=== PATIENT | male | born 1970 | race Two or more races ===

== ENCOUNTER 2018-02-25 12:07 | Emergency (ER) | payer OTHER ==
[2018-02-25 12:21] VITALS: BP 118/78; PULSE 57; TEMP 98.8; BMI 29.9
[2018-02-25] MEDS ORDERED: IBUPROFEN 600 MG TABLET (FP) PO ONE ×2 (13:47→13:51)
--- NOTE | 2018-02-25 13:56 | PDOC ---
Suture Removal/Wound Check HPI - History of Present Illness Chief Complaint: Revisit,Wound Recheck Stated Complaint: LEFT RING FINGER INJURD Time Seen by Provider: 02/25/18 12:58 History Source: Yes: Patient Exam Limitations: Yes: No Limitations - Onset of Previous Treatment Date of Occurence: 02/23/18 Option to Enter number here: 2 Select one - (for the option above): Days Past History - Travel Traveled outside of the country in the last 30 days: No Close contact w/someone who was outside of country & ill: No - Past Medical History Allergies/Adverse Reactions: Allergies Allergy/AdvReac Type Severity Reaction Status Date / Time No Known Drug Allergies Allergy Verified 02/22/18 21:42 Home Medications: Ambulatory Orders Ciprofloxacin HCl [Cipro] 500 mg PO BID #14 tablet 02/22/18 Anemia: No Asthma: Yes Cancer: No Cardiac Disorders: No CVA: No COPD: No CHF: No Dementia: No Diabetes: No GI Disorders: No Disorders: No HTN: No Hypercholesterolemia: No Liver Disease: No Seizures: No Thyroid Disease: No - Suicide/Smoking/Psychosocial Hx Smoking History: Never smoked Have you smoked in the past 12 months: No Hx Alcohol Use: No Drug/Substance Use Hx: No Substance Use Type: None Hx Substance Use Treatment: No Suture Removal/Wound Check PE - Physical Exam Laceration/Wound Check Symptoms: reports: Pain. denies: Fever, Chills Current Severity Level: Moderate Maximum Severity Level: Severe *Review of Systems - Review of Systems Constitutional: No: Chills, Fever HEENTM: No: Nose Congestion, Throat Pain Respiratory: No: Cough, Orthopnea, SOB at Rest Musculoskeletal: Yes: Joint Pain. No: Neck Pain, Joint Stiffness Neurological: No: Numbness, Paresthesia *Physical Exam - Vital Signs Last Vital Signs Temp Pulse Resp BP Pulse Ox 98.8 F 57 L 18 118/78 98 02/25/18 12:10 02/25/18 12:10 02/25/18 12:10 02/25/18 12:10 02/25/18 12:10 - Physical Exam General Appearance: Yes: Nourished, Appropriately Dressed HEENT: positive: EOMI, JULITO Respiratory/Chest: positive: Lungs Clear, Normal Breath Sounds Cardiovascular: positive: Regular Rhythm, Regular Rate Extremity: positive: Other (dx with crush injury to left 4th digit) Medical Decision Making - Medical Decision Making 02/25/18 19:21 47 year old male states he was told to come to ed by office of Dr. Sanchez, states he is going to be seen here. After multiple calls to Dr. Sanchez's office, received call back from Dr. Sanchez who was in another hospital, states patient was scheduled to be in ed in the am. Instruction given for patient to return to ed in the morning and admitted to his service through emergency room for surgery. Instructions given to patient who states understanding *DC/Admit/Observation/Transfer Diagnosis at time of Disposition: Finger injury Qualifiers: Encounter type: initial encounter Laterality: left Qualified Code(s): S69.92XA - Unspecified injury of left wrist, hand and finger(s), initial encounter - Discharge Dispostion Disposition: HOME Condition at time of disposition: Good Decision to Admit order: No - Referrals Referrals: Wiley Augustin MD [Staff Physician] - - Patient Instructions Additional Instructions: Please leave dressing in place Report to emergency room at 8am for admission on Dr. Wiley Sanchez's service for surgery of finger May take acetaminophen today, no ibuprofen, advil or alleve Do not eat in the morning unless instructed to do so by Dr. Sanchez - Post Discharge Activity Forms/Work/School Notes: Back to Work
== END 2018-02-25 16:17 | disposition home or self-care (01) ==
LOC: JERFT 12:07
DX: S69.92XA Unspecified injury of left wrist, hand and finger(s), initial encounter (principal); Y92.9 Unspecified place or not applicable
CPT/HCPCS: 99281-25

== ENCOUNTER 2018-02-26 08:26 | Emergency (ER) | payer OTHER ==
[2018-02-26 08:39] VITALS: BMI 29.9
--- NOTE | 2018-02-26 09:25 | PDOC ---
History of Present Illness - General Chief Complaint: Injury Stated Complaint: PCP SENT Time Seen by Provider: 02/26/18 08:56 History Source: Patient - History of Present Illness Initial Comments: 02/26/18 10:53 Patient is a 47 year old male with no reported PMH who presents to the ED following a L 4th digit open fracture. Patient was at work earlier this week when his hand got caught on a wrecking ball. Was evaluated in our ED on 02/25 and scheduled for repair w/Dr. Augustin today. Patient states he is taking the prescribed antibiotic course and denies any fevers, numbness or tingling. Past History - Past Medical History Allergies/Adverse Reactions: Allergies Allergy/AdvReac Type Severity Reaction Status Date / Time No Known Drug Allergies Allergy Verified 02/26/18 09:58 Home Medications: Ambulatory Orders Ciprofloxacin HCl [Cipro] 500 mg PO BID #14 tablet 02/22/18 Cephalexin Monohydrate [Keflex -] 500 mg PO Q8H #15 capsule 02/26/18 Ibuprofen [Motrin -] 600 mg PO TID PRN #90 tablet MDD 3 02/26/18 Oxycodone HCl/Acetaminophen [Percocet 5-325 mg Tablet] 1 tab PO Q6H PRN #15 tablet MDD 4 02/26/18 Anemia: No Asthma: Yes Cancer: No Cardiac Disorders: No CVA: No COPD: No CHF: No Dementia: No Diabetes: No GI Disorders: No Disorders: No HTN: No Hypercholesterolemia: No Liver Disease: No Seizures: No Thyroid Disease: No - Suicide/Smoking/Psychosocial Hx Smoking History: Never smoked Have you smoked in the past 12 months: No Information on smoking cessation initiated: No Hx Alcohol Use: No Drug/Substance Use Hx: No Substance Use Type: None Hx Substance Use Treatment: No Review of Systems - Review of Systems Constitutional: No: Chills, Fever HEENTM: No: Blurred Vision, Double Vision Respiratory: No: Cough, Shortness of Breath, Stridor, Wheezing Cardiac (ROS): No: Chest Pain, Lightheadedness, Palpitations, Syncope ABD/GI: No: Constipated, Diarrhea, Nausea, Vomiting : No: Burning, Dysuria *Physical Exam - Vital Signs Last Vital Signs Temp Pulse Resp BP Pulse Ox 98.5 F 56 L 16 127/89 100 02/26/18 08:30 02/26/18 08:30 02/26/18 08:30 02/26/18 08:30 02/26/18 08:30 - Physical Exam General Appearance: Yes: Nourished, Appropriately Dressed HEENT: positive: Normal Voice, Hearing Grossly Normal Neck: positive: Trachea midline, Supple Respiratory/Chest: positive: Lungs Clear, Normal Breath Sounds Cardiovascular: positive: S1, S2, Edema, JVD Comments:: 02/26/18 17:44 2+ radial pulse B/L Gastrointestinal/Abdominal: positive: Flat, Soft Extremity: positive: Other (L 4th digit: nail laceration, NVI, hand otherwise warm, dry, intact skin) Neurologic: positive: Fully Oriented, Alert Medical Decision Making - Medical Decision Making 02/26/18 15:15 47 year old male with open tuft fracture Dr. Ryder @ bedside. Nail avulsion, detachment and repair. Patient to continue on antibiotic prophylaxis, return precautions and discharged home. I discussed the physical exam findings, ancillary test results and final diagnoses with the patient. I answered all of the patient's questions. The patient was satisfied with the care received and felt comfortable with the discharge plan and treatment plan. The patient will return to the Emergency Department with any new, persistent or worsening symptoms. *DC/Admit/Observation/Transfer Diagnosis at time of Disposition: Finger injury Qualifiers: Encounter type: initial encounter Laterality: left Qualified Code(s): S69.92XA - Unspecified injury of left wrist, hand and finger(s), initial encounter - Discharge Dispostion Disposition: HOME Condition at time of disposition: Improved - Prescriptions Prescriptions: Cephalexin Monohydrate [Keflex -] 500 mg PO Q8H #15 capsule Ibuprofen [Motrin -] 600 mg PO TID PRN #90 tablet MDD 3 PRN Reason: Pain Oxycodone HCl/Acetaminophen [Percocet 5-325 mg Tablet] 1 tab PO Q6H PRN #15 tablet MDD 4 PRN Reason: Pain - Referrals - Patient Instructions Printed Discharge Instructions: DI for Laceration Repair -- Finger Additional Instructions: Postoperative instructions: You had a Nail bed laceration repair on 02/26/[address] Wiley Augustin of [facility]. You have been prescribed an antibiotic. Please take the entire prescribed course. Activity: Resume your usual activities gradually, but no heavy exertion or lifting more than 10-15 pounds for 4-6 weeks. please keep dressing on clean and dry until first followup appointment. Eat lightly at first, but advance to your usual diet as tolerated. Pain: For pain, you may use and alternate Tylenol (acetaminophen) 1-2 pills and/ or ibuprofen 200 mg (1-3 pills) every 6 hours each as needed; this means that you can take one OR the other at 3-hour intervals. If you are prescribed a Tylenol/narcotic combination for severe pain, use it instead of plain Tylenol as needed and switch back when your pain starts decreasing. Do not take more than 4000 mg of acetaminophen in a day. Take medications as prescribed or indicated on the labeling. Follow-up: Call Dr. Augustin' office at [phone] to make your postop appointment (Wednesday in approximately 2 weeks after procedure as advised). Clinic is held in the [facility] on the first floor of [facility]. Call the office if you have: * increasing pain not responsive to pain medication * fever of 101F or higher * unusual or increasing bleeding or drainage from wounds * increasing redness or swelling at wound sites Also, see your primary medical doctor within 1-2 weeks. Return to the Emergency Department for any new/worsening/concerning symptoms. - Post Discharge Activity
[2018-02-26] MEDS ORDERED: LIDOCAINE HCL 2% (20ML MULTI-DOSE VIAL) NR ONE (09:35)
--- NOTE | 2018-02-26 09:39 | CONSULT ---
Consult Consult Specialty:: Hand and Microsurgery Reason for Consultation:: left ring finger open fracture - History of Present Illness Chief Complaint: left ring finger open fracture History of Present Illness: 47 yo RHD male with no significant PMH who presents to the ED following a Left 4th digit open fracture. Patient was at work earlier this week when his hand got caught on a wrecking ball. Was evaluated in our ED on 02/25 and scheduled for repair w/Dr. Augustin today. Patient states he is taking the prescribed antibiotic course and denies any fevers, numbness or tingling. We were asked to assess and treat. - History Source History Provided By: Patient, Medical Record Limitations to Obtaining History: No Limitations - Alcohol/Substance Use Hx Alcohol Use: No - Smoking History Smoking history: Never smoked Have you smoked in the past 12 months: No - Social History Usual Living Arrangement: With Spouse Place of : [facility] History of Recent Travel: No Home Medications - Allergies Allergies/Adverse Reactions: Allergies Allergy/AdvReac Type Severity Reaction Status Date / Time No Known Drug Allergies Allergy Verified 02/26/18 09:58 - Home Medications Home Medications: Ambulatory Orders Ciprofloxacin HCl [Cipro] 500 mg PO BID #14 tablet 02/22/18 Cephalexin Monohydrate [Keflex -] 500 mg PO Q8H #15 capsule 02/26/18 Ibuprofen [Motrin -] 600 mg PO TID PRN #90 tablet MDD 3 02/26/18 Oxycodone HCl/Acetaminophen [Percocet 5-325 mg Tablet] 1 tab PO Q6H PRN #15 tablet MDD 4 02/26/18 Review of Systems - Review of Systems Constitutional: denies: Chills, Fever Eyes: denies: Blind Spots, Blurred Vision, Recent Change in Vision HENT: denies: Difficult Swallowing, Throat Pain Neck: denies: Decreased ROM, Tenderness Cardiovascular: denies: Chest Pain, Edema Respiratory: denies: Cough, SOB Gastrointestinal: denies: Abdominal Pain, Constipation, Diarrhea Genitourinary: denies: Burning, Discharge, Dysuria Musculoskeletal: reports: Extremity Pain (left hand) Integumentary: denies: Lesions, Lump Neurological: denies: Seizure, Syncope Endocrine: denies: Unexplained Weight Gain, Unexplained Weight Loss Hematology/Lymphatic: denies: Easily Bruised, Excessive Bleeding Psychiatric: denies: Anxiety, Depression Physical Exam Vital Signs: Vital Signs Temperature 98.5 F 02/26/18 08:30 Pulse Rate 56 L 02/26/18 08:30 Respiratory Rate 16 02/26/18 08:30 Blood Pressure 127/89 02/26/18 08:30 O2 Sat by Pulse Oximetry (%) 100 02/26/18 08:30 Constitutional: Yes: Well Nourished, No Distress, Calm Eyes: Yes: Conjunctiva Clear, EOM Intact HENT: Yes: Atraumatic, Normocephalic Neck: Yes: Supple, Trachea Midline Cardiovascular: Yes: Regular Rate and Rhythm, S1, S2 Respiratory: Yes: Regular, CTA Bilaterally Gastrointestinal: Yes: Normal Bowel Sounds, Soft ...Rectal Exam: Yes: Deferred Renal/: No: CVA Tenderness - Left, CVA Tenderness - Right Musculoskeletal: No: Muscle Pain, Muscle Weakness Extremities: Yes: Other (left hand ring finger splint). No: Cool, Cyanosis Edema: No Integumentary: Yes: Other (transverse laceration across the nailbed and plate. with exposed distal tuft fragment) Wound/Incision: Yes: Clean/Dry, Well Approximated, Other (left hand ring finger splint removed.) Neurological: Yes: Alert, Oriented Psychiatric: Yes: Alert, Oriented Imaging - Results X-ray: Report Reviewed, Image Reviewed (left finger tuft frature with adjacent soft tissue defect) Problem List - Problems (1) Open fracture of tuft of distal phalanx of finger Assessment/Plan: 47yo male with left ring finger open tuft fracture and naibed avulsion. IVF hydration IV antibitics Bedside Repair of nailbed laceration Discussed with patient risks, benefits and alternatives of above aforementioned procedure, including but not limited to bleeding, infection, injury to adjacent structures, need for further procedures, ; alternatives include antibiotics , delayed or no surgery - risks of this include failure of nonoperative therapy, sepsis, recurrence, .Patient desires to proceed with operation - will take to OR for above. Informed consent signed for same. Thank you for the opportunity to participate in the care of this patient. Code(s): S62.639B - DISP FX OF DISTAL PHALANX OF UNSP FINGER, INIT FOR OPN FX (2) Nailbed avulsion Code(s): QNB1492 - (3) Crush injury to finger Code(s): S67.10XA - CRUSHING INJURY OF UNSPECIFIED FINGER(S), INITIAL ENCOUNTER (4) Finger injury Code(s): S69.90XA - UNSP INJURY OF UNSP WRIST, HAND AND FINGER(S), INIT ENCNTR Qualifiers: Encounter type: initial encounter Laterality: left Qualified Code(s): S69.92XA - Unspecified injury of left wrist, hand and finger(s), initial encounter (5) Laceration Code(s): [id number] -
[2018-02-26] MEDS ORDERED: LIDOCAINE HCL 2% (50ML VIAL) NR ONE (09:47)
--- NOTE | 2018-02-26 10:11 | PDOC ---
Attending Attestation - HPI HPI: 02/26/18 10:14 The patient is a 47 year old male who presents to the emergency department for scheduled left finger surgery s/p work related injury. The patient was seen on 02/22 for left hand injury after trying to stop a metal boiler which resulted in the 4th digit being crushed. Pt presents today for scheduled surgery on left hand 4th digit nail bed from the care of Dr. Augustin. <Arianne Villegas - Last Filed: 02/26/18 10:14> - Resident Resident Name: Julee Larios - ED Attending Attestation I have performed the following: I have examined & evaluated the patient, The case was reviewed & discussed with the resident, I agree w/resident's findings & plan, Exceptions are as noted - Physicial Exam PE: 02/26/18 10:10 laceration to nail bed of the left fourth digit. nv intact. all else atraumatic to hand skin otherwise warm and dry. 02/26/18 11:02 awake alert NAD lungs clear bilaterally. heart rrr no mrg. left fourth finger with laceration to nail bed as described above. nv intact. - Medical Decision Making 02/26/18 10:09 plan d/w dr augustin for definitive management and repair. of laceration pain control as needed. <Diamond Hicks - Last Filed: 02/26/18 11:03> Attestations - Attestations Documentation prepared by Arianne Villegas, acting as medical recruiter for Diamond Hicks MD. <Arianne Villegas - Last Filed: 02/26/18 10:14>
[2018-02-26] MEDS ORDERED: IBUPROFEN 400 MG TABLET (FP) PO ONE ×2 (10:39→10:43)
[2018-02-26 10:50] VITALS: BP 138/91; PULSE 54; TEMP 98.1
--- NOTE | 2018-02-27 22:11 | PROC ---
Incision and Drainage Indication/Location: Laceration Repair Left Ring finger on 02/26/2018 Risks and Benefits Explained: Yes Consent on Chart: Yes Betadine cleansed: Yes Anesthesia: 1% Lidocaine Irrigated with Normal Saline: Yes Plain packing: No Sterile Dressing Applied: Yes - Remarks Remarks: Left ring finger transverse open tuft frature and nailbed laceration. The finger was blocked with lidocaine volar and dorsal. After full steriled scrub with brushes, sterile prep and drape and a formal time-out, the nailbed was elevated and removed. The fracture was reduced. The laceration was then repaired in interruped fashion with 5-0 proline. The bandaged was placed.
== END 2018-02-26 11:00 | disposition home or self-care (01) ==
LOC: JER 08:26 → UNDOADMIN 10:41 → JERBED 10:41 → JER 11:00
PROC: 0HQGXZZ Repair Left Hand Skin, External Approach (ICD-10-PCS; principal; 2018-02-26)
DX: S61.512A Laceration without foreign body of left wrist, initial encounter (principal); W18.39XA Other fall on same level, initial encounter; Y93.89 Activity, other specified; Y92.89 Other specified places as the place of occurrence of the external cause; J45.909 Unspecified asthma, uncomplicated
CPT/HCPCS: 71045-TC-FY; 99282-25

== ENCOUNTER 2019-04-22 17:14 | Emergency (ER) | payer OTHER ==
[2019-04-22 17:35] VITALS: BP 128/70; PULSE 56; TEMP 98.2; BMI 32.1
--- NOTE | 2019-04-22 18:01 | PDOC ---
History of Present Illness - General Chief Complaint: Back Pain Stated Complaint: RT SIDE PAIN Time Seen by Provider: 04/22/19 17:46 History Source: Patient Exam Limitations: No Limitations - History of Present Illness Initial Comments: 04/22/19 18:12 Patient here with complaint of severe low back pain. States is suffered for some weeks and has seen his PMD for same. PMD described the patient some severe arthritic changes, prescribed ibuprofen, and organized for MRI of his low back 3 weeks ago. Patient states went to MRI but was unable to complete the exam due to claustrophobia Occurred: reports: other Severity: reports: moderate, severe Pain Location: reports: back Method of Injury: Yes: unknown Modifying Factors: improves with: pain medication Loss of Consciousness: no loss of consciousness Associated Symptoms (Fall): muscle spasms, trouble walking Past History - Past Medical History Allergies/Adverse Reactions: Allergies Allergy/AdvReac Type Severity Reaction Status Date / Time No Known Drug Allergies Allergy Verified 04/22/19 17:33 Home Medications: Ambulatory Orders Ciprofloxacin HCl [Cipro] 500 mg PO BID #14 tablet 02/22/18 Cephalexin Monohydrate [Keflex -] 500 mg PO Q8H #15 capsule 02/26/18 Ibuprofen [Motrin -] 600 mg PO TID PRN #90 tablet MDD 3 02/26/18 Oxycodone HCl/Acetaminophen [Percocet 5-325 mg Tablet] 1 tab PO Q6H PRN #15 tablet MDD 4 02/26/18 Cyclobenzaprine HCl 10 mg PO Q8H PRN #14 tablet 04/22/19 Naproxen [Naprosyn -] 500 mg PO BID #30 tablet 04/22/19 predniSONE [Deltasone -] 20 mg PO BID #8 tablet 04/22/19 Anemia: No Asthma: Yes Cancer: No Cardiac Disorders: No CVA: No COPD: No CHF: No Dementia: No Diabetes: No GI Disorders: No Disorders: No HTN: No Hypercholesterolemia: No Liver Disease: No Seizures: No Thyroid Disease: No - Immunization History Immunization Up to Date: Yes - Psycho Social/Smoking Cessation Hx Smoking History: Never smoked Have you smoked in the past 12 months: No Information on smoking cessation initiated: No Hx Alcohol Use: No Drug/Substance Use Hx: No Substance Use Type: None Hx Substance Use Treatment: No Review of Systems - Review of Systems Able to Perform ROS?: Yes Is the patient limited Maltese proficient: Yes Constitutional: Yes: Symptoms Reported, See HPI, Malaise. No: Fever HEENTM: No: Symptoms Reported Respiratory: Yes: Symptoms reported Musculoskeletal: Yes: Symptoms Reported, See HPI, Muscle Pain. No: Joint Swelling Neurological: Yes: Symptoms reported, See HPI All Other Systems: Reviewed and Negative *Physical Exam - Vital Signs Last Vital Signs Temp Pulse Resp BP Pulse Ox 98.2 F 56 L 17 128/70 98 04/22/19 17:33 04/22/19 17:33 04/22/19 17:33 04/22/19 17:33 04/22/19 17:33 - Physical Exam General Appearance: Yes: Nourished, Appropriately Dressed, Apparent Distress, Moderate Distress HEENT: positive: JULITO, Normal ENT Inspection, TMs Normal, Pharynx Normal Neck: positive: Supple Respiratory/Chest: positive: Lungs Clear, Normal Breath Sounds Gastrointestinal/Abdominal: positive: Tender, Soft Musculoskeletal: positive: Normal Inspection, Muscle Spasm (Tender tight tense musculature along the paravertebral spinous muscles primarily on the right side worse at the L1-3 areas. Range of motion limited secondary to pain, has no true bony tenderness but pain is radiating through right gluteus and down the posterior aspect of right leg in the sciatic distribution.). negative: CVA Tenderness, CVA Tenderness (L), Vertebral Tenderness Extremity: positive: Normal Capillary Refill, Normal Range of Motion Integumentary: positive: Normal Color, Dry, Warm Neurologic: positive: unclaimed property manager II-XII NML intact, Fully Oriented, Alert, Normal Mood/ Affect, Normal Response, Motor Strength 5/5 ED Progress Note - Progress Note Progress Note: 04/22/19 19:49 Back strain, will treat with NSAIDs, steroids, and cyclobenzaprine. Encouraged to follow-up with PMD to obtain the MRI to identify exact injury and dysfunction to back. Discharge - Discharge Information Problems reviewed: Yes Clinical Impression/Diagnosis: Spasm of back muscles Condition: Stable Disposition: HOME - Admission No - Additional Discharge Information Prescriptions: Cyclobenzaprine HCl 10 mg PO Q8H PRN #14 tablet PRN Reason: spasm Naproxen [Naprosyn -] 500 mg PO BID #30 tablet predniSONE [Deltasone -] 20 mg PO BID #8 tablet - Follow up/Referral Referrals: Jose Amaya DO [Staff Physician] - - Patient Discharge Instructions Patient Printed Discharge Instructions: DI for Back Strain or Sprain Additional Instructions: Rest, no heavy lifting or exercise until pain is resolved Hot soaks to neck and low back as often as possible/hot showers or Jacuzzis No massage or therapy until spasm is gone Continue Naprosyn 500 mg tablet, 1 tablet every 8 hours for the next 3 days then as needed for pain and swelling Cyclobenzaprine 1-10mg every 8 hours as needed for spasm Prednisone 40 mg daily for next 4 days If not significant improvement within 24 hours with medication and rest regime, followup with private physician for change in medications and /or therapy. - Post Discharge Activity Work/Back to School Note: Back to Work
[2019-04-22] MEDS ORDERED: KETOROLAC TROMETHAMINE 60 MG/2 ML VIAL IM ONE (18:02)
[2019-04-22] MEDS ORDERED: predniSONE 20 MG TABLET (UD) PO ONE (18:02)
[2019-04-22] MEDS ORDERED: predniSONE 20 MG TABLET (UD) ONE (18:08)
[2019-04-22] MEDS ORDERED: KETOROLAC TROMETHAMINE 60 MG/2 ML VIAL ONE (18:08)
== END 2019-04-22 18:15 | disposition home or self-care (01) ==
LOC: JERFT 17:14
PROC: 3E0233Z Introduction of Anti-inflammatory into Muscle, Percutaneous Approach (ICD-10-PCS; principal; 2019-04-22)
DX: M62.830 Muscle spasm of back (principal)
CPT/HCPCS: 99281-25

== ENCOUNTER 2019-06-14 11:31 | Emergency (ER) | payer OTHER ==
[2019-06-14] MEDS ORDERED: METHOCARBAMOL 500 MG TABLET PO ONE (11:54)
[2019-06-14] MEDS ORDERED: traMADol HCL 50 MG TABLET PO ONE (11:54)
[2019-06-14] MEDS ORDERED: IBUPROFEN 600 MG TABLET (FP) PO ONE ×2 (11:54→12:01)
[2019-06-14] MEDS ORDERED: LIDOCAINE 5% TOPICAL PATCH TP ONE (11:54)
[2019-06-14] MEDS ORDERED: traMADol HCL 50 MG TABLET ONE (12:00)
[2019-06-14] MEDS ORDERED: METHOCARBAMOL 500 MG TABLET ONE (12:00)
[2019-06-14] MEDS ORDERED: LIDOCAINE 5% TOPICAL PATCH ONE (12:01)
[2019-06-14 12:25] VITALS: BMI 32.8
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
[2019-06-14 15:17] VITALS: BP 125/78; PULSE 85; TEMP 98.1
[2019-06-14] MEDS ORDERED: LIDOCAINE PATCH REMOVAL MC SCH (22:00)
== END 2019-06-14 14:55 | disposition home or self-care (01) ==
LOC: JER 11:31
DX: V43.52XA Car driver injured in collision with other type car in traffic accident, initial encounter (principal); Y93.89 Activity, other specified; Y92.410 Unspecified street and highway as the place of occurrence of the external cause; M79.18 Myalgia, other site; J45.909 Unspecified asthma, uncomplicated
CPT/HCPCS: 70450-TC; 71046-TC-FY; 72100-TC-FY; 72125-TC; 73562-TC-RT-FY; 99282-25

== ENCOUNTER 2019-10-10 21:25 | Inpatient (IN) | payer OTHER ==
[2019-10-10] MEDS ORDERED: ONDANSETRON *ODT* 4 MG TABLET SL ONE (21:29)
[2019-10-10] MEDS ORDERED: ALBUTEROL SO4 HFA INHALER IH ONE ×2 (21:29→21:32)
[2019-10-10] MEDS ORDERED: ACETAMINOPHEN 325 MG TABLET (FP) PO ONE (21:29)
[2019-10-10 21:31] VITALS: BMI 29.9
[2019-10-10] MEDS ORDERED: ACETAMINOPHEN 325 MG TABLET (FP) ONE (21:32)
[2019-10-10] MEDS ORDERED: ONDANSETRON *ODT* 4 MG TABLET ONE (21:33)
[2019-10-10] MEDS ORDERED: morphine CARPU-JECT 4 MG/1 ML DISP.SYRIN IVPUSH ONE (23:19)
[2019-10-10] MEDS ORDERED: morphine SULFATE 4 MG/ML VIAL ONE (23:23)
[2019-10-10 23:25] LABS: BASO % 0.3 % (0-2.0); HEMATOCRIT 41.5 % (35.4-49); HEMOGLOBIN 14.2 GM/dL (11.7-16.9); LYMPH % 8.6 % (8-40); MCH 30.5 pg (25.7-33.7); MCHC 34.2 g/dl (32.0-35.9); MEAN PLT VOLUME 8.4 fl (7.5-11.1); MONO % 4.8 % (3.8-10.2); NEUT % 86.3 % (42.8-82.8); PLATELET COUNT 284 K/MM3 (134-434); RBC 4.66 M/mm3 (4.00-5.60); WHITE BLOOD COUNT 11.4 K/mm3 (4.0-10.0)
[2019-10-10 23:35] LABS: INR 1.3 (0.83-1.09); PROTHROMBIN TIME (PATIENT) 15.4 SEC (9.7-13.0)
[2019-10-10 23:38] LABS: ACTIVATED PTT 31.3 SECONDS (25.2-36.5)
[2019-10-10 23:57] LABS: ALK PHOS 57 U/L (45-117); ANION GAP 13 MMOL/L (8-16); BILIRUBIN,TOTAL 0.5 mg/dL (0.2-1); BLOOD UREA NITROGEN 15.5 mg/dL (7-18); CALCIUM 8.2 mg/dL (8.5-10.1); CHLORIDE 101 mmol/L (98-107); CO2 20 mmol/L (21-32); GLUCOSE,RANDOM 110 mg/dL (74-106); POTASSIUM 3.4 mmol/L (3.5-5.1); SGOT/AST 84 U/L (15-37); SGPT/ALT 33 U/L (13-61); SODIUM 134 mmol/L (136-145); TOT PROT 7.2 g/dl (6.4-8.2)
[2019-10-11] MEDS ORDERED: MAG HYDROX/AL HYDROX/SIMETH 30 ML UNIT-DOSE CUP PO ONE (05:20)
[2019-10-11] MEDS ORDERED: FAMOTIDINE 20 MG/50 ML IVPB 20 MG/50 ML MG IVPB ONE ×2 (05:20→05:32)
[2019-10-11] MEDS ORDERED: morphine CARPU-JECT 4 MG/1 ML DISP.SYRIN IVPUSH ONE (05:21)
[2019-10-11] MEDS ORDERED: METOCLOPRAMIDE HCL INJECTION 10 MG/2 ML VIAL IVPB ONE (05:21)
[2019-10-11] MEDS ORDERED: morphine SULFATE 4 MG/ML VIAL ONE (05:31)
[2019-10-11] MEDS ORDERED: MAG HYDROX/AL HYDROX/SIMETH 30 ML UNIT-DOSE CUP ONE (05:32)
[2019-10-11] MEDS ORDERED: IBUPROFEN 600 MG TABLET (FP) PO ONE ×2 (05:40→05:46)
[2019-10-11] MEDS ORDERED: LACTATED RINGERS SOLUTION 1000 ML INFUS.BAG IV ONE (05:44)
[2019-10-11] MEDS ORDERED: METOCLOPRAMIDE HCL INJECTION 10 MG/2 ML VIAL ONE (05:46)
[2019-10-11] MEDS ORDERED: MORPHINE SULFATE 2 MG/ML VIAL IVPUSH PRN (05:57)
[2019-10-11] MEDS ORDERED: SODIUM CHLORIDE 0.45% 1,000 ML IV SCH (06:00)
[2019-10-11] MEDS ORDERED: TRAMADOL HCL PO PRN (06:02)
[2019-10-11] MEDS ORDERED: ACETYLCYSTEINE 20% 200MG/ML 30ML VIAL *FOR INJECTION USE ONLY IVPB ONE ×6 (12:41→21:30)
[2019-10-11] MEDS: MORPHINE SULFATE 2 MG/ML VIAL IVPUSH PRN ×2 (13:41→18:14)
[2019-10-11] MEDS ORDERED: PT OWN MED DRAWER 7, Y5N ONE ×2 (16:17→17:55)
[2019-10-11] MEDS ORDERED: ONDANSETRON 4 MG/2 ML VIAL IVPUSH PRN (17:44)
[2019-10-11] MEDS: PANTOPRAZOLE SODIUM 40 MG VIAL IVPUSH SCH (17:53)
[2019-10-11 20:34] LABS: ALBUMIN 2.5 g/dl (3.4-5.0); BILIRUBIN,DIRECT 0.1 mg/dL (0.0-0.2); BILIRUBIN,TOTAL 0.3 mg/dL (0.2-1); TOT PROT 6.3 g/dl (6.4-8.2)
[2019-10-12] MEDS: MORPHINE SULFATE 2 MG/ML VIAL IVPUSH PRN (00:19)
[2019-10-12] MEDS ORDERED: ACETYLCYSTEINE 20% 200MG/ML 30ML VIAL *FOR INJECTION USE ONLY IVPB ONE (00:30)
[2019-10-12 01:02] LABS: ALBUMIN 2.4 g/dl (3.4-5.0); BILIRUBIN,DIRECT 0.1 mg/dL (0.0-0.2); BILIRUBIN,TOTAL 0.3 mg/dL (0.2-1); TOT PROT 6.3 g/dl (6.4-8.2)
[2019-10-12 09:34] LABS: HEMATOCRIT 37.3 % (35.4-49); HEMOGLOBIN 12.9 GM/dL (11.7-16.9); MCH 30.9 pg (25.7-33.7); MCHC 34.6 g/dl (32.0-35.9); MEAN CELL VOLUME 89.2 fl (80-96); MEAN PLT VOLUME 7.9 fl (7.5-11.1); PLATELET COUNT 293 K/MM3 (134-434); RBC 4.18 M/mm3 (4.00-5.60); RDW 12.8 % (11.9-15.9); WHITE BLOOD COUNT 6.4 K/mm3 (4.0-10.0)
[2019-10-12 09:35] LABS: INR 1.24 (0.83-1.09); PROTHROMBIN TIME (PATIENT) 14.7 SEC (9.7-13.0)
[2019-10-12 09:38] LABS: ACTIVATED PTT 29.5 SECONDS (25.2-36.5)
[2019-10-12] MEDS ORDERED: AZITHROMYCIN IVPB 500 MG/250 ML BAG IVPB ONE (10:00)
[2019-10-12 10:11] LABS: ALBUMIN 2.5 g/dl (3.4-5.0); BILIRUBIN,DIRECT 0.1 mg/dL (0.0-0.2); BILIRUBIN,TOTAL 0.4 mg/dL (0.2-1); BLOOD UREA NITROGEN 8.9 mg/dL (7-18); CALCIUM 8.2 mg/dL (8.5-10.1); CREATININE 0.9 mg/dL (0.55-1.3); POTASSIUM 3.4 mmol/L (3.5-5.1); TOT PROT 6.5 g/dl (6.4-8.2)
[2019-10-12] MEDS ORDERED: HYDROXYCHLOROQUINE SO4 200 MG TABLET (FP) PO ONE ×2 (11:15→23:00)
[2019-10-12] MEDS: PANTOPRAZOLE SODIUM 40 MG VIAL IVPUSH SCH (11:39)
[2019-10-12] MEDS ORDERED: ACETYLCYSTEINE IVPB ONE ×3 (14:00→19:00)
[2019-10-12] MEDS ORDERED: WATER IVPB ONE ×3 (14:00→19:00)
[2019-10-12] MEDS ORDERED: DEXTROSE 5% IVPB ONE ×3 (14:00→19:00)
[2019-10-12] MEDS ORDERED: PT OWN MED DRAWER 7, Y5N ONE ×2 (14:27→18:58)
[2019-10-13 11:35] LABS: MCH 31.5 pg (25.7-33.7); MCHC 35.3 g/dl (32.0-35.9); MEAN CELL VOLUME 89.3 fl (80-96); MEAN PLT VOLUME 8.1 fl (7.5-11.1); PLATELET COUNT 319 K/MM3 (134-434); RBC 4.14 M/mm3 (4.00-5.60); WHITE BLOOD COUNT 7.9 K/mm3 (4.0-10.0)
[2019-10-13 11:38] LABS: INR 1.3 (0.83-1.09); PROTHROMBIN TIME (PATIENT) 15.4 SEC (9.7-13.0)
[2019-10-13 12:02] LABS: ALBUMIN 2.4 g/dl (3.4-5.0); BILIRUBIN,DIRECT 0.1 mg/dL (0.0-0.2); BILIRUBIN,TOTAL 0.3 mg/dL (0.2-1); BLOOD UREA NITROGEN 8.2 mg/dL (7-18); CALCIUM 8.6 mg/dL (8.5-10.1); CREATININE 0.8 mg/dL (0.55-1.3); MAGNESIUM 2.3 mg/dL (1.8-2.4); PHOSPHOROUS 2.4 mg/dL (2.5-4.9); POTASSIUM 3.8 mmol/L (3.5-5.1); TOT PROT 6.3 g/dl (6.4-8.2)
[2019-10-13] MEDS: PANTOPRAZOLE SODIUM 40 MG VIAL IVPUSH SCH (12:20)
[2019-10-13] MEDS: HYDROXYCHLOROQUINE SO4 200 MG TABLET (FP) PO SCH ×2 (12:20→21:07)
[2019-10-13] MEDS ORDERED: SODIUM CHLORIDE 1,000 ML IV SCH (14:30)
[2019-10-14] MEDS: SODIUM CHLORIDE 1,000 ML IV SCH ×2 (01:39→21:40)
[2019-10-14 09:18] LABS: BASO % 0.2 % (0-2.0); EOS % 1.4 % (0-4.5); HEMATOCRIT 34.2 % (35.4-49); LYMPH % 15.7 % (8-40); MEAN CELL VOLUME 88.6 fl (80-96); MEAN PLT VOLUME 7.7 fl (7.5-11.1); MONO % 12.2 % (3.8-10.2); NEUT % 70.5 % (42.8-82.8); PLATELET COUNT 341 K/MM3 (134-434); RBC 3.86 M/mm3 (4.00-5.60); RDW 12.8 % (11.9-15.9)
[2019-10-14 10:05] LABS: ALBUMIN 2.3 g/dl (3.4-5.0); BILIRUBIN,TOTAL 0.3 mg/dL (0.2-1); BLOOD UREA NITROGEN 8.5 mg/dL (7-18); CALCIUM 8.4 mg/dL (8.5-10.1); CREATININE 0.9 mg/dL (0.55-1.3); POTASSIUM 3.9 mmol/L (3.5-5.1)
[2019-10-14] MEDS: HYDROXYCHLOROQUINE SO4 200 MG TABLET (FP) PO SCH ×2 (10:27→21:41)
[2019-10-14] MEDS: PANTOPRAZOLE SODIUM 40 MG VIAL IVPUSH SCH (10:27)
[2019-10-14] MEDS ORDERED: INSULIN (NOVOLOG) ASPART 100 UNITS/ML 10ML VIAL ONE (12:44)
[2019-10-14] MEDS ORDERED: SODIUM CHLORIDE 0.9% 250 ML INFUS.BAG IV ONE (16:25)
[2019-10-15] MEDS: SODIUM CHLORIDE 1,000 ML IV SCH (06:10)
[2019-10-15] MEDS ORDERED: PANTOPRAZOLE 20 MG TABLET PO SCH (10:00)
[2019-10-15 10:32] LABS: BASO % 0.3 % (0-2.0); EOS % 1.3 % (0-4.5); HEMATOCRIT 33.4 % (35.4-49); HEMOGLOBIN 11.6 GM/dL (11.7-16.9); LYMPH % 12.1 % (8-40); MCH 30.9 pg (25.7-33.7); MCHC 34.7 g/dl (32.0-35.9); MEAN CELL VOLUME 89.1 fl (80-96); MEAN PLT VOLUME 7.3 fl (7.5-11.1); MONO % 9.8 % (3.8-10.2); NEUT % 76.5 % (42.8-82.8); PLATELET COUNT 374 K/MM3 (134-434); RBC 3.75 M/mm3 (4.00-5.60); RDW 12.8 % (11.9-15.9); WHITE BLOOD COUNT 8.1 K/mm3 (4.0-10.0)
[2019-10-15 11:08] LABS: ALBUMIN 2.3 g/dl (3.4-5.0); BILIRUBIN,TOTAL 0.4 mg/dL (0.2-1); BLOOD UREA NITROGEN 9.4 mg/dL (7-18); CALCIUM 8.3 mg/dL (8.5-10.1); CREATININE 0.9 mg/dL (0.55-1.3); POTASSIUM 3.6 mmol/L (3.5-5.1)
[2019-10-15] MEDS ORDERED: ACETAMINOPHEN 325 MG TABLET (FP) PO ONE (15:31)
[2019-10-15] MEDS: HYDROXYCHLOROQUINE SO4 200 MG TABLET (FP) PO SCH (16:15)
[2019-10-15 20:37] VITALS: BP 116/66; PULSE 75; TEMP 98.5
== END 2019-10-15 17:30 | disposition home or self-care (01) | DRG 177 ==
LOC: JER 21:25 → JERBED 10-11 05:57 → J5S 10-11 09:33
PROVIDERS: ADMIT Internal Medicine; ATTEND Psychiatry & Neurology Neurology
DX: U07.1 COVID-19 (principal); J12.89 Other viral pneumonia; M62.82 Rhabdomyolysis; J45.909 Unspecified asthma, uncomplicated; R11.2 Nausea with vomiting, unspecified; R10.11 Right upper quadrant pain; T39.1X1A Poisoning by 4-Aminophenol derivatives, accidental (unintentional), initial encounter; Y92.89 Other specified places as the place of occurrence of the external cause; R74.0 Nonspecific elevation of levels of transaminase and lactic acid dehydrogenase [LDH]; R94.5 Abnormal results of liver function studies; R50.9 Fever, unspecified; R05 Cough; R06.02 Shortness of breath; J06.9 Acute upper respiratory infection, unspecified; D18.09 Hemangioma of other sites; D72.829 Elevated white blood cell count, unspecified
CPT/HCPCS: 36415; 71045-TC-FY; 74177-TC; 76705-TC; 80048; 80053; 80074; 80076; 80307; 82550; 82553; 82728; 83516; 83605; 83615; 83690; 83735; 84100; 84484; 85025; 85027; 85610; 85730; 86038; 86140; 93005; 93010; 99285-25; Q0162; U0002

== ENCOUNTER 2021-03-11 20:15 | Emergency (ER) | payer OTHER ==
[2021-03-11 21:11] VITALS: BP 135/85; PULSE 66; TEMP 98.9; BMI 31.4
[2021-03-11] MEDS ORDERED: ONDANSETRON 4 MG/2 ML VIAL IVPUSH ONE (21:48)
[2021-03-11] MEDS ORDERED: FAMOTIDINE 20 MG/50 ML IVPB 20 MG/50 ML MG IVPB ONE ×2 (21:48→21:54)
[2021-03-11] MEDS ORDERED: SODIUM CHLORIDE 0.9% 500 ML INFUS.BAG IV ONE (21:48)
[2021-03-11] MEDS ORDERED: ONDANSETRON 4 MG/2 ML VIAL ONE (21:54)
[2021-03-11 22:14] LABS: BASO % 0.5 % (0-2.0); EOS % 2.1 % (0-4.5); HEMATOCRIT 39.2 % (35.4-49); HEMOGLOBIN 13.6 GM/dL (11.7-16.9); LYMPH % 33.7 % (8-40); MCH 31.1 pg (25.7-33.7); MCHC 34.7 g/dl (32.0-35.9); MEAN CELL VOLUME 89.6 fl (80-96); MEAN PLT VOLUME 8.1 fl (7.5-11.1); MONO % 8.6 % (3.8-10.2); NEUT % 55.1 % (42.8-82.8); PLATELET COUNT 275 10^3/uL (134-434); RBC 4.38 M/mm3 (4.00-5.60); RDW 13.2 % (11.9-15.9); WHITE BLOOD COUNT 8.5 K/mm3 (4.0-10.0)
[2021-03-11 22:24] LABS: INR 0.94 (0.83-1.09); PROTHROMBIN TIME (PATIENT) 11.4 SEC (9.7-13.0)
[2021-03-11 22:26] LABS: ACTIVATED PTT 28.1 SECONDS (25.2-36.5)
[2021-03-11 22:30] LABS: CHLORIDE 111 mmol/L (98-107); SODIUM 141 mmol/L (136-145)
[2021-03-11 22:32] LABS: CALCIUM 8.6 mg/dL (8.5-10.1)
[2021-03-11 22:33] LABS: ALBUMIN 3.6 g/dl (3.4-5.0); ANION GAP 3 MMOL/L (8-16); BLOOD UREA NITROGEN 13.4 mg/dL (7-18); CO2 27 mmol/L (21-32); GLUCOSE,RANDOM 97 mg/dL (74-106)
[2021-03-11 22:36] LABS: CREATININE 1.1 mg/dL (0.55-1.3); SGOT/AST 17 U/L (15-37); SGPT/ALT 19 U/L (13-61)
[2021-03-11 22:37] LABS: BILIRUBIN,TOTAL 0.2 mg/dL (0.2-1); TOT PROT 7.4 g/dl (6.4-8.2)
[2021-03-11 22:39] LABS: ALK PHOS 63 U/L (45-117)
== END 2021-03-12 00:18 | disposition home or self-care (01) ==
LOC: JER 20:15
PROC: 3E033GC Introduction of Other Therapeutic Substance into Peripheral Vein, Percutaneous Approach (ICD-10-PCS; principal; 2021-03-11)
PROC: 3E033GC Introduction of Other Therapeutic Substance into Peripheral Vein, Percutaneous Approach (ICD-10-PCS; 2021-03-11)
DX: K76.0 Fatty (change of) liver, not elsewhere classified (principal); K29.00 Acute gastritis without bleeding
CPT/HCPCS: 36415; 76705-TC; 80053; 82550; 82553; 84484; 85025; 85610; 85730; 93005; 93010; 99285-25

== ENCOUNTER 2021-06-08 13:34 | Observation (INO) | payer BC, OTHER ==
[2021-06-08 13:38] VITALS: BMI 32.8
[2021-06-08] MEDS ORDERED: morphine CARPU-JECT 4 MG/1 ML DISP.SYRIN IVPUSH ONE (14:01)
[2021-06-08] MEDS ORDERED: morphine SULFATE 4 MG/ML VIAL ONE (14:02)
[2021-06-08 14:36] LABS: BASO % 0.7 % (0-2.0); EOS % 2.2 % (0-4.5); HEMATOCRIT 43.7 % (35.4-49); HEMOGLOBIN 15.2 GM/dL (11.7-16.9); LYMPH % 39.5 % (8-40); MCH 31.4 pg (25.7-33.7); MCHC 34.8 g/dl (32.0-35.9); MEAN CELL VOLUME 90.2 fl (80-96); MEAN PLT VOLUME 8.3 fl (7.5-11.1); MONO % 10.8 % (3.8-10.2); NEUT % 46.8 % (42.8-82.8); PLATELET COUNT 277 10^3/uL (134-434); RBC 4.84 M/mm3 (4.00-5.60); RDW 13.6 % (11.9-15.9); WHITE BLOOD COUNT 5.7 K/mm3 (4.0-10.0)
[2021-06-08] MEDS ORDERED: METOCLOPRAMIDE HCL INJECTION 10 MG/2 ML VIAL IVPUSH ONE (14:37)
[2021-06-08 14:40] LABS: CALCIUM 8.8 mg/dL (8.5-10.1)
[2021-06-08] MEDS ORDERED: SODIUM CHLORIDE 0.9% 500 ML INFUS.BAG IV ONE (14:40)
[2021-06-08 14:41] LABS: ALBUMIN 3.6 g/dl (3.4-5.0); BLOOD UREA NITROGEN 13.2 mg/dL (7-18)
[2021-06-08] MEDS ORDERED: LORazepam 2 MG/ML SDV VIAL IVPUSH ONE (14:41)
[2021-06-08 14:44] LABS: CREATININE 1.1 mg/dL (0.55-1.3); INR 1.06 (0.83-1.09); PROTHROMBIN TIME (PATIENT) 11.9 SEC (9.7-13.0)
[2021-06-08 14:45] LABS: BILIRUBIN,TOTAL 0.4 mg/dL (0.2-1)
[2021-06-08 14:46] LABS: TOT PROT 7.3 g/dl (6.4-8.2)
[2021-06-08 14:47] LABS: ACTIVATED PTT 24.6 SECONDS (25.2-36.5)
[2021-06-08] MEDS ORDERED: METOCLOPRAMIDE HCL INJECTION 10 MG/2 ML VIAL ONE (14:48)
[2021-06-08] MEDS ORDERED: LORazepam 2 MG/ML SDV VIAL ONE (14:49)
[2021-06-08] MEDS ORDERED: ACETAMINOPHEN 325 MG TABLET (FP) PO PRN (17:04)
[2021-06-08] MEDS ORDERED: ONDANSETRON 4 MG/2 ML VIAL IVPB PRN (17:07)
[2021-06-08] MEDS ORDERED: oxyCODONE HCL 5 MG TABLET PO PRN (17:11)
[2021-06-08] MEDS ORDERED: ONDANSETRON 4 MG/2 ML VIAL ONE (20:24)
[2021-06-08] MEDS ORDERED: HEPARIN NA (PORCINE) 5,000 UNITS/ML 1ML VIAL SQ SCH (22:00)
[2021-06-09 05:49] VITALS: TEMP 98.8
[2021-06-09 08:08] LABS: BASO % 0.4 % (0-2.0); EOS % 1.5 % (0-4.5); HEMATOCRIT 40.7 % (35.4-49); HEMOGLOBIN 14.1 GM/dL (11.7-16.9); LYMPH % 23.4 % (8-40); MCH 31.2 pg (25.7-33.7); MCHC 34.7 g/dl (32.0-35.9); MEAN CELL VOLUME 89.9 fl (80-96); MEAN PLT VOLUME 8.2 fl (7.5-11.1); MONO % 6.7 % (3.8-10.2); PLATELET COUNT 251 10^3/uL (134-434); RBC 4.53 M/mm3 (4.00-5.60); RDW 13.6 % (11.9-15.9); WHITE BLOOD COUNT 8.3 K/mm3 (4.0-10.0)
[2021-06-09 08:23] LABS: CALCIUM 8.4 mg/dL (8.5-10.1)
[2021-06-09 08:25] LABS: ALBUMIN 3.2 g/dl (3.4-5.0); BLOOD UREA NITROGEN 14.2 mg/dL (7-18)
[2021-06-09 08:28] LABS: CREATININE 1.2 mg/dL (0.55-1.3)
[2021-06-09 08:29] LABS: BILIRUBIN,TOTAL 0.6 mg/dL (0.2-1); TOT PROT 6.8 g/dl (6.4-8.2)
[2021-06-09] MEDS ORDERED: ASPIRIN COATED 81 MG TABLET.EC PO SCH (15:45)
[2021-06-09] MEDS ORDERED: amLODIPine BESYLATE 2.5 MG TABLET (FP) PO SCH (15:45)
[2021-06-09] MEDS ORDERED: ASPIRIN COATED 81 MG TABLET.EC ONE (15:49)
[2021-06-09] MEDS ORDERED: amLODIPine BESYLATE 2.5 MG TABLET (FP) ONE (15:51)
[2021-06-09 16:52] VITALS: BP 125/76; PULSE 76
== END 2021-06-09 16:53 | disposition left against medical advice (07) ==
LOC: JER 13:34 → JERBED 16:05
PROVIDERS: ADMIT Internal Medicine
PROC: 3E033NZ Introduction of Analgesics, Hypnotics, Sedatives into Peripheral Vein, Percutaneous Approach (ICD-10-PCS; principal; 2021-06-08)
PROC: 3E033GC Introduction of Other Therapeutic Substance into Peripheral Vein, Percutaneous Approach (ICD-10-PCS; 2021-06-08)
DX: R07.89 Other chest pain (principal); R51.9 Headache, unspecified; J45.909 Unspecified asthma, uncomplicated; Z86.79 Personal history of other diseases of the circulatory system
CPT/HCPCS: 36415; 70450-TC; 70496-TC; 70498-TC; 71045-TC-FY; 80053; 82550; 84484; 85025; 85610; 85651; 85730; 86850; 86900; 86901; 93005; 93010; 93306-TC; 93351; 99291; C9803; G0378; U0003; U0005